=== PATIENT | female | born 1995 | race Caucasian/White ===

== ENCOUNTER 2021-01-30 11:13 | Emergency (ER) | payer OTHER ==
[2021-01-30 11:43] LABS: Absolute Lymphocytes (CBC) 2.3 K/uL (0.7-4.9); Basophils % 0.2 % (0-1.3); Hematocrit 34.3 % (36.0-45.0); Lymphocytes % 23.1 % (15.3-44.8); MPV 8.1 fL (7.6-11.3); RBC Red Blood Cell Count 4.12 M/uL (3.86-4.86)
[2021-01-30 11:56] LABS: BUN Blood Urea Nitrogen 6 mg/dL (7-18); Bicarbonate 25 mmol/L (21-32); Glucose Level 98 mg/dL (74-106); Potassium 3.5 mmol/L (3.5-5.1); Sodium Level 137 mmol/L (136-145)
[2021-01-30 12:06] LABS: Urine Blood Trace-intact (Negative); Urine Glucose Negative (Negative); Urine Protein 1+ (Negative); Urine Specific Gravity 1.025 (1.005-1.030); Urine pH 7.5 (5.0-7.0)
--- NOTE | 2021-01-30 12:32 | ER ---
Nurse's Notes [facility] Name: Ilene Vaughn Age: 25 yrs Sex: Female : 1995 Arrival Date: 01/30/2021 Time: 11:19 Bed Ultrasound Private MD: Diagnosis: 11 weeks gestation of ;Syncope;Volume depletion, unspecified Presentation: 01/30 11:21 Chief complaint: EMS states: pt is approx 10 weeks , had syncopal episode at [facility], pt was orthostatic positive, EMs administer 500 mL NS, HR went from 120 to 80, WL=090, pt donated blood yesterday , had had some fatigue with but no vomiting or previous episodes of syncope. Coronavirus screen: At this time, the client does not indicate any symptoms associated with coronavirus-19. Ebola Screen: Patient negative for fever greater than or equal to 101.5 degrees Fahrenheit, and additional compatible Ebola Virus Disease symptoms Patient denies exposure to infectious person. Patient denies travel to an Ebola-affected area in the 21 days before illness onset. No symptoms or risks identified at this time. Initial Sepsis Screen: Does the patient meet any 2 criteria? No. Patient's initial sepsis screen is negative. Does the patient have a suspected source of infection? No. Patient's initial sepsis screen is negative. Risk Assessment: Do you want to hurt yourself or someone else? Patient reports no desire to harm self or others. Onset of symptoms was January 30, 2021. 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 Screenin:26 Abuse screen: Denies threats or abuse. Denies injuries from another. Nutritional iw screening: No deficits noted. Tuberculosis screening: No symptoms or risk factors identified. Fall Risk IV access (20 points). Assessment: 11:25 General: Appears in no apparent distress. Behavior is calm, cooperative. Pain: Denies iw pain. Neuro: Level of Consciousness is awake, alert, obeys commands, Oriented to person, place, time, situation, Moves all extremities. Full function. Neuro: Reports a syncopal episode. Cardiovascular: Rhythm is regular. Respiratory: Respiratory effort is even, unlabored, Respiratory pattern is regular, symmetrical. GI: Abdomen is non-distended. : Denies vaginal bleeding. Derm: Skin is intact, is healthy with good turgor. Vital Signs: 11:22 BP 112 / 71 Sitting; Pulse 85; iw 11:24 BP 120 / 60 Standing; Pulse 120; iw 11:25 BP 105 / 73; Pulse 77; Resp 16; Temp 97.6; Pulse Ox 100% on R/A; Weight 58.97 kg; iw Height 5 ft. 2 in. (157.48 cm); Pain 0/10; 11:52 Pulse 81; Resp 16; Pulse Ox 100% on R/A; iw 11:25 Body Mass Index 23.78 (58.97 kg, 157.48 cm) iw Vitals: 13:54 Heart Tones 165 bpm, per US. iw ED Course: 11:19 Patient arrived in ED. iw 11:21 Aura Thurston, RN is Primary Nurse. iw 11:23 Triage completed. iw 11:23 Arm band placed on. iw 11:24 Pauly Nuñez [facility]-C [facility]. kb 11:24 Sherine Saleh MD is Attending Physician. kb 11:26 Maintain EMS IV. Dressing intact. Good blood return noted. Site clean \T\ dry. Gauge \T\ iw site: 18 RAC. 11:30 Patient has correct armband on for positive identification. iw 11:32 Initial lab(s) drawn, by sd, sent to lab. [facility] 13:59 No provider procedures requiring assistance completed. IV discontinued, intact, iw bleeding controlled, No redness/swelling at site. Pressure dressing applied. 14:01 OB Limited US In Process Unspecified. EDMS Administered Medications: 11:31 Drug: NS 0.9% 1000 ml Route: IV; Rate: 1000 ml; Site: right antecubital; iw 12:30 Follow up: IV Status: Completed infusion iw Outcome: 12:32 Discharge ordered by . kb 13:59 Discharged to home ambulatory, with family. iw 13:59 Condition: good 13:59 Discharge instructions given to patient, Instructed on discharge instructions, follow up and referral plans. Demonstrated understanding of instructions, follow-up care. 14:00 Patient left the ED. iw Signatures: Dispatcher [employer] Pauly Blackman, ABHI GARCIA-Aura Clemens, RN RN Kerline Rey3 Corrections: (The following items were deleted from the chart) 11:50 11:24 BP 113 / 71; Pulse 85bpm; iw iw 11:50 11:24 BP 113 / 71 Sitting; Pulse 85bpm; iw iw 11:51 11:21 BP 105 / 73; Pulse 77bpm; Resp 16bpm; Pulse Ox 100% RA; Temp 97.6F; 58.97 kg; iw Height 5 ft. 2 in.; BMI: 23.7; Pain 0/10; iw
--- NOTE | 2021-01-30 12:33 | EDPHYS ---
Physician Documentation [facility] Name: Ilene Vaughn Age: 25 yrs Sex: Female : 1995 Arrival Date: 01/30/2021 Time: 11:19 Bed Ultrasound Private MD: ED Physician Sherine Saleh HPI: 01/30 17:22 This 25 yrs old Female presents to ER via EMS with complaints of Syncope. kb 17:22 The patient has experienced syncope, collapsed. Onset: The symptoms/episode kb began/occurred just prior to arrival. Duration: This was a single episode, that lasted an unknown period of time. Context: occurred at a parking lot, occurred while the patient was walking, Just prior to the episode the patient experienced lightheadedness. Associated injury: The patient did not suffer any apparent associated injury. Associated signs and symptoms: Pertinent positives: lightheadedness, 1st trimester. Current symptoms: Currently, the patient is not experiencing any symptoms, the patient feels back to baseline, no decreased level of consciousness, no confusion, no dysphasia, no headache, no paralysis, no visual changes. The patient has not experienced similar symptoms in the past. The patient has not recently seen a physician. Patient reports she was walking out of [place] lobby and was feeling a little lightheaded and weak then passed out. States she had blood work done yesterday at the OBs office and that normally makes her feel this way but yesterday she felt fine. Patient is approximately 11 to 12 weeks . A0. Patient denies any abdominal pain or vaginal bleeding. Injection EMS reports positive orthostatic vital signs. 500 mils of normal saline administered prior to arrival. Pulse went from 120 on scene to 80 in ER.. 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 ROS: 16:58 Constitutional: Negative for fever, chills, and weight loss. kb 17:23 Neuro: Positive for dizziness, syncope, weakness. kb 17:23 All other systems are negative. Exam: 17:23 Constitutional: This is a well developed, well nourished patient who is awake, alert, kb and in no acute distress. Head/Face: Normocephalic, atraumatic. ENT: Moist Mucous membranes Cardiovascular: Regular rate and rhythm with a normal S1 and S2. No gallops, murmurs, or rubs. No pulse deficits. Respiratory: Respirations even and unlabored. No increased work of breathing, no retractions or nasal flaring. Abdomen/GI: Soft, non-tender. No distention Skin: Warm, dry with normal turgor. Normal color. MS/ Extremity: Pulses equal, no cyanosis. Neurovascular intact. Full, normal range of motion. Neuro: Awake and alert, GCS 15, oriented to person, place, time, and situation. Moves all extremities. Normal gait. Psych: Awake, alert, with orientation to person, place and time. Behavior, mood, and affect are within normal limits. Vital Signs: 11:22 BP 112 / 71 Sitting; Pulse 85; iw 11:24 BP 120 / 60 Standing; Pulse 120; iw 11:25 BP 105 / 73; Pulse 77; Resp 16; Temp 97.6; Pulse Ox 100% on R/A; Weight 58.97 kg; iw Height 5 ft. 2 in. (157.48 cm); Pain 0/10; 11:52 Pulse 81; Resp 16; Pulse Ox 100% on R/A; iw 11:25 Body Mass Index 23.78 (58.97 kg, 157.48 cm) iw MDM: 11:24 Patient medically screened. kb 16:58 Data reviewed: vital signs, nurses notes. Data interpreted: Pulse oximetry: on room air kb is 100 %. Interpretation: normal. Counseling: I had a detailed discussion with the patient and/or guardian regarding: the historical points, exam findings, and any diagnostic results supporting the discharge/admit diagnosis, lab results, the need for outpatient follow up, an OB/Gyne specialist, to return to the emergency department if symptoms worsen or persist or if there are any questions or concerns that arise at home. 17:21 ED course: Pt ambulated around ER with no dizziness, lightheadedness. States she feels kb better now. Will follow up with OB. Will return if needed. Educated to keep up with PO intake to stay hydrated. . 01/30 11:24 Order name: CBC with Diff; Complete Time: 11:48 kb 01/30 11:24 Order name: Basic Metabolic Panel; Complete Time: 12:17 kb 01/30 11:24 Order name: Urine Dipstick-Ancillary (obtain specimen); Complete Time: 12:01 kb 01/30 12:06 Order name: Urine Dipstick-Ancillary; Complete Time: 12:17 EDMS 01/30 13:31 Order name: OB Limited US kb 01/30 11:24 Order name: Orthostatics; Complete Time: 11:27 kb Administered Medications: 11:31 Drug: NS 0.9% 1000 ml Route: IV; Rate: 1000 ml; Site: right antecubital; iw 12:30 Follow up: IV Status: Completed infusion iw Disposition Summary: 01/30/21 12:32 Discharge Ordered Location: Home kb Condition: Stable kb Diagnosis - 11 weeks gestation of kb - Syncope kb - Volume depletion, unspecified kb Followup: kb - With: Emergency Department - When: As needed - Reason: Worsening of condition Followup: kb - With: Private Physician - When: 2 - 3 days - Reason: Recheck today's complaints, Continuance of care, Re-evaluation by your physician Discharge Instructions: - Discharge Summary Sheet kb - First Trimester of , [id number] kb - Syncope, [id number] kb Forms: - Medication Reconciliation Form kb - Thank You Letter kb - Antibiotic Education kb - Prescription Opioid Use kb Signatures: Dispatcher [employer] EDPauly Light, DISTRIBUTION TECH-C DISTRIBUTION TECH-Aura Clemens, RN RN iw Corrections: (The following items were deleted from the chart) 17:24 17:22 Patient reports she was walking out of [place] and was feeling a little kb lightheaded and weak then passed out. States she had blood work done yesterday at the OBs office and that normally makes her feel this way but yesterday she felt fine. Patient is approximately 11 to 12 weeks . A0. kb
[2021-01-30 14:08] VITALS: BP 105/73; TEMP 97.6; O2SAT 100
--- NOTE | 2021-01-30 14:08 | RAD REPORT ---
EXAM DESCRIPTION: US - OB Limited - 01/30/2021 2:01 pm CLINICAL HISTORY: . Assess viability COMPARISON: None FINDINGS: Limited examination performed to assess viability Intrauterine in transverse presentation. Amniotic fluid within normal limits. Cardiac activity 171 beats per minute. The right and left adnexal are unremarkable. IMPRESSION: Viable intrauterine
== END 2021-01-30 14:00 | disposition home or self-care (01) ==
LOC: ER 11:13
DX: O99.281 Endocrine, nutritional and metabolic diseases complicating pregnancy, first trimester (principal); E86.9 Volume depletion, unspecified; Z3A.11 11 weeks gestation of pregnancy
CPT/HCPCS: 36415; 76815; 80048; 81003; 85025; 96360; 99284